=== PATIENT | female | born 1990 | race Caucasian/White ===

== ENCOUNTER 2018-09-03 22:21 | Emergency (ER) | payer OTHER ==
[~2018-09-03] VITALS: Ht 147.3 cm; Wt 52.6 kg
[2018-09-04] MEDS ORDERED: LEVSIN/SL0.125 MG SL (04:04)
[2018-09-04] MEDS ORDERED: PEPCID40 MG PO (04:04)
== END 2018-09-04 04:22 | disposition home or self-care (01) ==
LOC: ER 22:21
DX: K52.9 Noninfective gastroenteritis and colitis, unspecified (principal)